=== PATIENT | female | born 1945 ===

== ENCOUNTER 2021-09-10 14:36 | Outpatient (REF) | payer OTHER, SELFPAY ==
--- NOTE | ~2021-09-10 | MM_ITS ---
EXAMINATION: MM SCREENING DIGITAL BREAST TOMOSYNTHESIS, BILATERAL CLINICAL INFORMATION: Right breast cancer status post lumpectomy 2009. Due for yearly. COMPARISON: Mammography: 12/07/2017, 10/18/2016, 10/10/2016, 03/17/2015 TECHNIQUE: Digital breast tomosynthesis is performed in both the craniocaudal and mediolateral oblique views along with computer-aided detection (CAD). Synthesized 2D images are generated from the tomosynthesis. Additional right MLO view is provided. FINDINGS: There are scattered areas of fibroglandular density (ACR BI-RADS breast composition Category b). Parenchymal pattern is similar to prior studies. There are stable post therapy changes again seen on the right with old scarring and reduced breast size. Neither breast shows interval mass or architectural abnormality or abnormal calcifications. No significant changes. MM/MM tomosynthesis screening BI IMPRESSION: No mammographic evidence of malignancy. ASSESSMENT: BI-RADS 2: Benign RECOMMENDATION: Routine annual mammography screening. This patient's information was entered into a reminder system with a target due date for their next mammogram.
== END 2021-09-10 14:37 | disposition home or self-care (01) ==
LOC: HO.MAMMO 14:36
PROVIDERS: Visit Provider Nurse Practitioner Family
DX: Z12.31 Encounter for screening mammogram for malignant neoplasm of breast (principal)
CPT/HCPCS: 77063; 77067

== ENCOUNTER 2022-10-03 08:56 | Outpatient (REF) | payer MEDICARE, SELFPAY ==
--- NOTE | ~2022-10-03 | MM_ITS ---
EXAMINATION: MM SCREENING DIGITAL BREAST TOMOSYNTHESIS, BILATERAL CLINICAL INFORMATION: Screening. Asymptomatic. Status post right lumpectomy. COMPARISON: Mammography: September 10, 2021 and studies dating back to March 17, 2015 TECHNIQUE: Digital breast tomosynthesis is performed in both the craniocaudal and mediolateral oblique views along with computer-aided detection (CAD). Synthesized 2D images are generated from the tomosynthesis. FINDINGS: There are scattered areas of fibroglandular density (ACR BI-RADS breast composition Category b). There are no significant masses, abnormal calcifications, or other abnormalities. Stable post surgical change about the right breast. MM/MM tomosynthesis screening BI IMPRESSION: No significant changes from prior exam. ASSESSMENT: BI-RADS 2: Benign RECOMMENDATION: Routine annual mammography screening. This patient's information was entered into a reminder system with a target due date for their next mammogram.
== END 2022-10-03 08:57 | disposition home or self-care (01) ==
LOC: HO.MAMMO 08:56
PROVIDERS: PCP Nurse Practitioner Family; Visit Provider Nurse Practitioner Family
DX: Z12.31 Encounter for screening mammogram for malignant neoplasm of breast (principal)
CPT/HCPCS: 77063; 77067

== ENCOUNTER 2023-05-03 09:59 | Outpatient (AMB) | payer MEDICARE, SELFPAY ==
[2023-05-03 10:24] VITALS: BP 120/74; PULSE 89; O2SAT 96; BMI 19.9
--- NOTE | 2023-05-03 10:24 | A.OFFPC_ITS ---
<Statement entered by Shira Centeno MD - 10/23/24 15:25> This note has been administratively?closed. Vital Signs 05/03/23 10:24 Height 5 ft Weight 102 lb 2 oz BMI 19.9 BP 120/74 Blood Pressure Location Rt brachial Position Sitting Pulse 89 Pulse Source Pulse Oximeter Pulse Oximetry (%) 96 Oxygen Delivery Method Room Air Intake Visit Reasons: HDF ~ Post hospital discharge FU Intake Note: pt is here for a HDF from [facility] Allergies Codeine Sulfate Allergy (Unknown, Uncoded 05/03/23 10:26) Unknown Darvon Allergy (Unknown, Uncoded 05/03/23 10:26) Unknown Tobacco use date assessed: 05/03/23 Fall risk assessment: 1 Fall in past year Last assessed Fall Risk: 05/03/23 Dental Screening Dental Screen Date: 05/03/23 Did you have a dental visit in the last 12 months?: No Did you have a dental problem in the last 6 months where you did not have access to dental care?: No Was dental information given to patient?: No HPI HPI Comments History of Present Illness Details The patient is a 77-year-old female in today following a hospital inpatient and rehab admission. The patient was originally admitted with a diagnosis of upper lobe pneumonia which was treated with ceftriaxone and azithromycin. While at the hospital they discovered hypokalemia which they attributed to a repleted well. While in the hospital they were able to rule out renal K wasting. The patient was discharged from the [facility] on 03/23/2023. It is reported by the patient that she has had a visiting nurse draw her blood at home to evaluate potassium levels. I do not have those potassium levels at this time. The patient presents today for follow-up on hypokalemia. She has no complaints at the time of visit, no dizziness, tachycardia, heart palpitations, shortness of breath, fever, or chest pain. She states that that since the hospital admission she has stopped drinking alcohol. The plan today will be focused exam with re-evaluation of electrolytes and blood count. PFSH Medical History Hx of bone density study Hypertension Osteopenia Psoriasis Surgical History H/O: hysterectomy S/P cholecystectomy Family History Father No problems noted. Mother Esophageal cancer Social History Housing: House Alcohol intake: current Alcohol intake frequency: a few times a week Patient Tobacco Use Status: Former Tobacco user Cigarettes Per Day: 4 Years Smoked: 17 years old e-Cigarette/Vaping Use: Never Used Second Hand Smoke Exposure: No Current occupational status: retired Cognitive needs: No Hearing needs: No Vision needs: No Questionnaire Thrive Questionnaire Date Thrive assessed: 11/07/22 IVAN-7 AMB Questionnaire IVAN-7 Date IVAN - 7 assessed: 11/07/22 Source: Developed by Drs. Tremaine Martinez, Marcie Harry, Ahmet Garcia and colleagues, with an educational cata from [employer]. Review of Systems Const Details: Constitutional : No Unintentional Weight loss, No Fever, No Chills, No Fatigue, Eyes: No Eye Pain, No Swelling, No Redness Cardiovascular : No Chest Pain, No SOB, No Dyspnea on Exertion, No Orthopnea, No Edema, No Palpitations Respiratory : No Cough, No Sputum, Gastrointestinal : No Nausea, No Vomiting, No Diarrhea, No Constipation, No abdominal Pain, No Hematochezia, No Melena Genitourinary : No Dysuria, No Urinary Frequency, No Hematuria, Musculoskeletal : No joint pain, No Myalgias, No Joint Swelling Skin : No Skin Lesions, No rash Neuro : No Weakness, No Numbness, No Dizziness, No Headache Psych : No Anxiety/Panic, No Depression Heme/Lymph: No Bruising, No Bleeding,No Lymphadenopathy Endocrine : No Polyuria, No Polydipsia All other systems reviewed and are negative All systems reviewed & are unremarkable except as noted in HPI and below Denies chills, Denies excessive sweating, Denies fatigue, Denies fever(s) and Denies headache(s) ENT Denies dizziness and Denies headache(s) Card Denies chest pain, Denies lightheadedness and Denies dyspnea Resp Denies chest congestion, Denies cough and Denies dyspnea Neuro Denies dizziness and Denies headache(s) Endo Denies excessive sweating, Denies fatigue and Denies polydipsia Physical exam (Primary Care) Vital Signs: Last Vital Signs Pulse 89 05/03/23 10:24 BP 120/74 05/03/23 10:24 Pulse Ox 96 05/03/23 10:24 Oxygen Delivery Method Room Air 05/03/23 10:24 Care Plan Goal for BP management: Patient's blood pressure is acceptable and stable BMI result Body Mass Index 19.9 Tobacco/Smoking Status: Tobacco use Status Tobacco use date assessed 05/03/23 05/03/23 10:33 Patient Tobacco Use Status Former Tobacco user 05/03/23 10:33 e-Cigarette/Vaping Use Never Used 05/03/23 10:33 Thrive Assessment: Date of Thrive Assessment Date Thrive assessed 11/07/22 05/03/23 10:33 Const Other: Appearance: Alert.? Oriented X3.? No acute distress.? Head: Normocephalic. Neck: Normal inspection.? Neck supple.? CVS: Normal heart rate and rhythm.? Pulses normal.? Respiratory: No respiratory distress.? Slight wheeze upper lobes bilaterally. ? Abdomen: Soft and nontender.? Skin: Skin warm and dry.? Normal skin color.? Neuro: Oriented X 3.?EOMI Eyes PERRLA General: no acute distress Orientation/consciousness: patient oriented x3 Limitations: ambulation with cane Resp Effort & Inspection: normal respiratory effort Auscultation: wheezes expiratory wheezes and upper bilaterally Cardio Jugular venous distension: no JVD Rate: regular rate Rhythm: regular rhythm Heart sounds: S1 normal heart sound present and S2 normal heart sound present Neuro General: patient oriented x3 Results Reviewed Results Reviewed: Patient has agreed to a lab draw today. Will call with results. Assessment and Plan Assessment & Plan (1) Hypokalemia: Code(s): E87.6 - Hypokalemia Plan: This is a follow-up visit from hospital inpatient admission where patient was found to have hypokalemia. We will get a lab draw today to assess electrolyte status. The patient is taking an [id number] potassium supplement with unknown amount of potassium. Patient has been instructed to stop that potassium, and to take 10 mEq of potassium chloride. Patient will have an additional lab draw for electrolytes in 3 days. She has been educated on the side effects of the medication. She has been educated on the importance of [place] ping her serum potassium level in range, as it can lead to serious side effects if not. She has been educated on signs of worsening symptoms and when to return for follow-up in when to present to the emergency room. Patient is agreeable to this plan. (2) Wheeze: Comment: The patient was found to have a slight inspiratory and expiratory wheeze on the bilateral upper lobes. Though patient denies having any shortness of breath or chest pain, due to her recent stay in the hospital for pneumonia will prescribe albuterol rescue inhaler because she does not have 1 at home. Patient has been educated on side effects of the medication. Patient has been educated on signs of worsening symptoms and when to return or present to the emergency room. Patient is agreeable to this plan. Code(s): R06.2 - Wheezing Orders: Orders Comprehensive Met. Panel 05/03/23 E87.6 - Hypokalemia Complete Blood Count Auto Diff 05/03/23 F17.200 - Nicotine dependence, unspecified, uncomplicated Electrolytes 05/03/23 E87.6 - Hypokalemia Medications: New albuterol sulfate 90 mcg/actuation 2 inhalations inhalation Q6H PRN 1 ea 0RF shortness of breath or wheezing potassium chloride 10 mEq PO DAILY 30 ea 0RF Coding Level of Care Code Est Pt Level 3 (64996) Diagnoses Hypokalemia E87.6 Wheeze R06.2 Time Spent (min) 30
== END 2023-05-03 11:07 | disposition home or self-care (01) ==
PROVIDERS: PCP Nurse Practitioner Family; Visit Provider Nurse Practitioner Primary Care
DX: E87.6 Hypokalemia (principal); R06.2 Wheezing
CPT/HCPCS: 99499

== ENCOUNTER 2023-05-03 11:13 | Outpatient (REF) | payer MEDICARE, SELFPAY ==
[2023-05-03 13:25] LABS: MANUAL DIFF FLAG NO
[2023-05-03 13:31] LABS: Basophils Absolute Auto 0.1 X10*3/uL (0.0-0.2); Basophils Percent Auto 0.7 % (0-2); Eosinophils Absolute Auto 0.1 X10*3/uL (0.0-0.4); Eosinophils Percent Auto 1.5 % (0-4); Hematocrit 43.1 % (37.0-47.0); Hemoglobin 14.4 g/dl (12.0-16.0); Imm Gran Abs Auto 0.03 X10*3/uL (0.00-0.03); Imm Gran Pct Auto 0.4 % (0.0-0.4); Lymphocytes Absolute Auto 1.6 X10*3/uL (1.2-4.9); Lymphocytes Percent Auto 20.5 % (20-40); Mean Corpuscular HGB Conc 33.4 g/dl (31.0-35.0); Mean Corpuscular Hemoglobin 30.2 pg (27.0-33.0); Mean Corpuscular Volume 90.4 fL (80.0-98.0); Mean Platelet Volume 10.8 fL (9.4-12.3); Monocytes Absolute Auto 0.5 X10*3/uL (0.1-1.2); Monocytes Percent Auto 6.1 % (2-11); Neutrophils Absolute Auto 5.4 x10*3/uL (2.0-8.3); Neutrophils Percent Auto 70.8 % (45-73); Platelet Count 340 X10*3/uL (160-400); Red Blood Count 4.77 X10*6/uL (4.20-5.50); Red Cell Distribution Width 14.6 % (11.0-16.0); White Blood Count 7.6 X10*3/uL (4.8-10.8)
[2023-05-03 14:24] LABS: Alanine Aminotransferase 11 U/L (0-31); Albumin Level 4.4 g/dL (3.5-5.0); Alkaline Phosphatase 115 U/L (39-117); Anion Gap 13 (12-20); Aspartate Amino Transferase 17 U/L (5-31); Bilirubin Total 0.3 mg/dL (0.0-1.0); Blood Urea Nitrogen 6 mg/dL (9-16); Calcium 10.3 mg/dL (8.4-10.2); Carbon Dioxide 26 mmol/L (22-29); Chloride 106 mmol/L (96-108); Estimated Glomerular Filt Rate > 60; Glucose Random 96 mg/dL (60-115); Potassium 3.2 mmol/L (3.3-5.1); Sodium 142 mmol/L (135-145); Total Protein 7.5 g/dL (6.5-8.0)
== END 2023-05-03 11:14 | disposition home or self-care (01) ==
LOC: HO.HMGCLDS 11:13
PROVIDERS: Absent Provider Nurse Practitioner Family; PCP Nurse Practitioner Family; Visit Provider Nurse Practitioner Primary Care
DX: E87.6 Hypokalemia (principal); F17.200 Nicotine dependence, unspecified, uncomplicated
CPT/HCPCS: 36415; 80053; 85025

== ENCOUNTER 2023-05-22 08:50 | Outpatient (REF) | payer MEDICARE, SELFPAY ==
[2023-05-22 11:53] LABS: Anion Gap 13 (12-20); Carbon Dioxide 24 mmol/L (22-29); Chloride 107 mmol/L (96-108); Potassium 3.3 mmol/L (3.3-5.1); Sodium 141 mmol/L (135-145)
== END 2023-05-22 08:51 | disposition home or self-care (01) ==
LOC: HO.HMGCLDS 08:50
PROVIDERS: Absent Provider Nurse Practitioner Primary Care; PCP Nurse Practitioner Family; Visit Provider Nurse Practitioner Family
DX: E87.6 Hypokalemia (principal)
CPT/HCPCS: 36415; 80051

== ENCOUNTER 2024-02-12 12:34 | Outpatient (AMB) | payer MEDICARE, SELFPAY ==
--- NOTE | 2024-02-12 12:40 | A.OFFPC_ITS ---
Vital Signs 02/12/24 12:46 Height 5 ft Weight 110 lb BMI 21.5 BP 120/72 Blood Pressure Location Rt brachial Position Sitting Pulse 90 Pulse Source Pulse Oximeter Pulse Oximetry (%) 96 Oxygen Delivery Method Room Air Intake Visit Reasons: Annual PE Intake Note: pt is here for annual exam [id number] Joy Operator Required: No Accompanied by: Self / Same As Patient Allergies Codeine Sulfate Allergy (Unknown, Uncoded 02/12/24 12:47) Unknown Darvon Allergy (Unknown, Uncoded 02/12/24 12:47) Unknown Medication List - Last Reconciled 02/12/24 by JOSE Horne amlodipine 10 mg PO DAILY 90 days apremilast (Otezla Starter) PO PER PKG DIR ascorbic acid (vitamin C) mg PO aspirin (Adult Aspirin Regimen) 81 mg PO DAILY cholecalciferol (vitamin D3) 25 mcg PO DAILY folic acid 1 mg PO DAILY ibuprofen-diphenhydramine cit 200-38 mg (Advil PM) 2 caps PO BEDTIME lactobacillus combination no.9 (Adult 50 Plus Probiotic) 4,000 mmu cells PO DAILY potassium chloride ER 10 mEq PO DAILY simvastatin 10 mg PO BEDTIME Tobacco use date assessed: 02/12/24 Fall risk assessment: No Falls in past year Last assessed Fall Risk: 02/12/24 Dental Screening Dental Screen Date: 02/12/24 Did you have a dental visit in the last 12 months?: No Did you have a dental problem in the last 6 months where you did not have access to dental care?: No Was dental information given to patient?: No HPI Annual PE HPI Details Pt is here for a PE. Will order labs. Refuses colon screens. Due for m ammo, will order. Due for bone density, will order. Pt is a former smoker, refuses low-dose CTs. [facility] Medical History Hx of bone density study Osteopenia Psoriasis Hypertension Surgical History S/P cholecystectomy H/O: hysterectomy Family History Father No problems noted. Mother Esophageal cancer Social History Housing: House Alcohol intake: current Alcohol intake frequency: a few times a week Patient Tobacco Use Status: Former Tobacco user Cigarettes Per Day: 4 Years Smoked: 17 years old e-Cigarette/Vaping Use: Never Used Second Hand Smoke Exposure: No Current occupational status: retired Cognitive needs: No Hearing needs: No Vision needs: No Questionnaire PHQ-9 Over the last 2 weeks, how often have you been bothered by any of the following problems? 1. Little interest or pleasure in doing things: not at all 2. Feeling down, depressed, or hopeless: not at all 3. Trouble falling or staying asleep, or sleeping too much: not at all 4. Feeling tired or having little energy: not at all 5. Poor appetite or overeating: not at all 6. Feeling bad about yourself - or that you are a failure or have let yourself or your family down: not at all 7. Trouble concentrating on things, such as reading the newspaper or watching television: not at all 8. Moving or speaking so slowly that other people could have noticed. Or the opposite - being so fidgety or restless that you have been moving around a lot more than usual: not at all 9. Thoughts that you would be better off or of hurting yourself in some way: not at all Total score: 0 Depression Screening Interpretation: Negative Depression Screening Done: Yes 11460 - PHQ-9 Billing: Yes Source: Developed by Drs. Tremaine Martinez, Marcie Harry, Ahmet Garcia and colleagues, with an educational cata from [employer]. Thrive Questionnaire Date Thrive assessed: 02/12/24 I am a: Patient What is your living situation today?: I have a steady place to live Within the past 12 months, did the food you bought not last and you didn't have the money to get more?: Never true Within the past 12 months, did you worry whether your food would run out before you got money to buy more?: Never true Do you have trouble paying for medicines?: No Do you have trouble getting transportation to medical appointments?: No Do you have trouble paying your heating and electricity bill?: No Do you have trouble taking care of your child, family member or friend?: No Do you have trouble with day-to-day activities such as bathing, preparing meals, shopping, managing finances, etc.?: No Are you currently unemployed and looking for a job?: No Are you interested in more education?: No Please select the resources that you would like help with: None Currently or been in a relationship where the following occur: No concerns reported and I choose not to answer THRIVE Score: 0 AUDIT C Alcohol Use Questionnaire (AUDIT-C) 1. How often do you have a drink containing alcohol?: 2-4 times a month 2. How many drinks containing alcohol do you have on a typical day when you are drinking?: 3 or 4 3. How often do you have six or more drinks on one occasion?: Never Total Score: 3 Score Reviewed/Action Taken: Yes IVAN-7 AMB Questionnaire IVAN-7 Date IVAN - 7 assessed: 02/12/24 Feeling nervous, anxious, or on edge: 0 = Not at all Not being able to stop or control worryin = Not at all Worrying too much about different things: 0 = Not at all Trouble relaxin = Not at all Being so restless that it is hard to sit still: 0 = Not at all Becoming easily annoyed or irritable: 0 = Not at all Feeling afraid as if something awful might happen: 0 = Not at all Total IVAN-7 score (0-4 normal; 5-9 mild; 10-14 moderate; 15-21 severe): 0 Source: Developed by Drs. Tremaine Martinez, Marcie Harry, Ahmet Garcia and colleagues, with an educational cata from [employer]. IVAN-7 Assessment Billing IVAN-7 Assessment Tool: IVAN-7 Assessment 42302 Review of Systems Const Denies chills and Denies fever(s) Eyes Denies blurry vision ENT Denies vertigo, Denies dizziness and Denies sore throat Card Denies chest pain at rest, Denies chest pain with activity, Denies diaphoresis, Denies dyspnea and Denies dyspnea on exertion Resp Denies cough, Denies dyspnea, Denies dyspnea on exertion and Denies wheezing GI Denies abdominal pain, Denies melena, Denies hematochezia, Denies constipation, Denies diarrhea and Denies loose stools Denies hematuria Musc Denies numbness and Denies tingling Skin/Breast Denies lesions Neuro Denies vertigo, Denies dizziness, Denies numbness and Denies tingling Psych Denies anxiety, Denies depression, Denies homicidal ideation, Denies suicidal ideation and Denies other (substance abuse) Aller/Immun Denies wheezing Physical exam (Primary Care) Vital Signs: Last Vital Signs Pulse 90 02/12/24 12:46 BP 120/72 02/12/24 12:46 Pulse Ox 96 02/12/24 12:46 Oxygen Delivery Method Room Air 02/12/24 12:46 BMI result Body Mass Index 21.5 Tobacco/Smoking Status: Tobacco use Status Tobacco use date assessed 02/12/24 02/12/24 12:51 Patient Tobacco Use Status Former Tobacco user 02/12/24 12:42 e-Cigarette/Vaping Use Never Used 02/12/24 12:42 PHQ-9: PHQ-9 Score PHQ-9: Total score 0 02/12/24 13:25 Depression Screening Interpretation: Negative Thrive Assessment: Date of Thrive Assessment Date Thrive assessed 02/12/24 02/12/24 12:51 Currently or been in a relationship where the following occur: No concerns reported and I choose not to answer Const General: cooperative Nutritional Appearance: well nourished Orientation/consciousness: patient oriented x3 HENMT Head: Yes normal to inspection, Yes normocephalic and Yes atraumatic Ears: TM's normal bilaterally Eyes General: appearance normal, both eyes and all related structures Alignment and Position: alignment normal and position normal Neck Neck: Yes normal visual inspection, Yes no lymphadenopathy and Yes supple Resp Other: scattered wheezes Cardio Rate: regular rate Rhythm: regular rhythm Heart sounds: S1 normal heart sound present, S2 normal heart sound present and no murmurs GI Palpation (GI): Soft to palpation and nontender Auscultation: normal bowel sounds Skin Rashes: no rashes Neuro General: patient oriented x3, moves all extremities, no focal motor deficits and deep tendon reflexes 2+ bilaterally Romberg Test: Negative Psych Appearance: grossly normal Mental Status: mental status grossly normal Speech and movement: Normal speech and movement present Affect: normal affect Attitude: cooperative Thought process: Normal thought process present Thought content: Normal thought content present Insight: Good insight present (Psych) Judgement: Good judgement present (Psych) Assessment and Plan Assessment & Plan (1) Physical exam: Code(s): Z00.00 - Encounter for general adult medical examination without abnormal findings Plan: Labs ordered (2) Osteopenia: Code(s): M85.80 - Other specified disorders of bone density and structure, unspecified site Plan: Bone density ordered Plan The patient agreed to the use of a medical social worker for this encounter. Scribed for BREANA Catalan-STEPHANIE by Josy Mendez medical social worker, on 02/12/2024 at 13:25 EST. Orders: Orders Comprehensive Bernard. Panel Fast Today Z00.00 - Encounter for general adult medical examination without abnormal findings TSH reflex Free T4 Today Z00.00 - Encounter for general adult medical examination without abnormal findings Complete Blood Count Auto Diff Today Z00.00 - Encounter for general adult medical examination without abnormal findings UA CC w/rflx Micro + Cult Today Z00.00 - Encounter for general adult medical examination without abnormal findings Lipid Panel Today Z00.00 - Encounter for general adult medical examination without abnormal findings MM screening mammo BI Today Z12.31 - Encounter for screening mammogram for malignant neoplasm of breast Vitamin D 25-OH Total Today M85.80 - Other specified disorders of bone density and structure, unspecified site XR DEXA axial skeleton Today M85.80 - Other specified disorders of bone density and structure, unspecified site Coding Level of Care Code Est Pt Prev Care >65y(43255) Diagnoses Physical exam Z00.00 Osteopenia M85.80 Additional Codes IVAN-7 Assessment Billing - IVAN-7 Assessment Tool: IVAN-7 Assessment 74085 ([id number])
[2024-02-12 12:46] VITALS: BP 120/72; PULSE 90; O2SAT 96; BMI 21.5
== END 2024-02-12 15:09 | disposition home or self-care (01) ==
PROVIDERS: PCP Nurse Practitioner Family; Visit Provider Nurse Practitioner Family
DX: Z00.00 Encounter for general adult medical examination without abnormal findings (principal); M85.80 Other specified disorders of bone density and structure, unspecified site
CPT/HCPCS: 99397

== ENCOUNTER 2024-03-07 12:34 | Outpatient (REF) | payer MEDICARE, SELFPAY ==
--- NOTE | ~2024-03-07 | MM_ITS ---
EXAMINATION: BONE DENSITOMETRY CLINICAL INDICATION: Other specified disorders of bone density and structure. COMPARISON: Previous BD dated 03/17/2015 and baseline BD dated 05/23/2006. TECHNIQUE: Using a [employer] DXA System (software version: 13.1) manufactured by [employer], dual-energy x-ray absorptiometry was performed of the lumbar spine and left hip. The images are of good technical quality. Summary results are attached. FINDINGS: LEFT FEMUR, NECK: Current: BMD 0.572 g/cm2, Z-score -1.1, T-score -3.4, osteoporosis. Prior: BMD 0.738 g/cm2. Baseline: BMD 0.890 g/cm2. LEFT FEMUR, TOTAL: Current: BMD 0.522 g/cm2, Z-score -1.7, T-score -3.9, osteoporosis, 31.0% decrease from previous, 43.2% decrease from baseline (<5% change is not significant). Prior: BMD 0.757 g/cm2. Baseline: BMD 0.919 g/cm2. AP SPINE L1-L4: Current: BMD 0.756 g/cm2, Z-score -1.3, T-score -3.5, osteoporosis, 15.1% decrease from previous, 22.1% decrease from baseline (<5% change is not significant). Prior: BMD 0.890 g/cm2. Baseline: BMD 0.970 g/cm2. IDENTIFIED RISK FACTORS: Early menopause, secondary osteoporosis, hysterectomy, left oophorectomy. HISTORY OF FRACTURE: None listed. MEDICATIONS: Calcium supplements or multivitamin, vitamin D. MM/XR DEXA axial skeleton IMPRESSION: 1. DIAGNOSIS: Osteoporosis based on the lowest T-score value of -3.9 in the total femur applying World Health Organization criteria. 2. 10-YEAR FRACTURE RISK PREDICTION, FRAX: According to the guidelines, FRAX calculation should only be performed on patients in the osteopenia bone density category. Therefore, FRAX was not performed on this patient. 3. Treatment Recommendations: NOF guidelines recommend consideration for treatment in postmenopausal women and men age 50 and older presenting with the following: -A hip or vertebral (clinical or morphometric) fracture. -T-score less than or equal to -2.5 at the femoral neck or spine after appropriate evaluation to exclude secondary causes. -Low bone mass at the hip or spine and a 10-year fracture probability by FRAX of greater than or equal to 3% for hip fracture or greater than or equal to 20% for major osteoporotic fracture based on the [place] adapted WHO algorithm. 4. Other Recommendations: All treatment decisions require clinical judgment and consideration of individual patient factors, including patient preferences, comorbidities, previous drug use, risk factors not captured in the FRAX model (e.g. frailty, falls, vitamin D deficiency, increased bone turnover, interval significant decline in bone density) and possible under or overestimation of fracture risk by FRAX. Additional medical evaluation for secondary cause of low bone mineral density may be appropriate. FUTURE SCAN RECOMMENDATION: People with diagnosed cases of osteoporosis or at high risk for fracture should have regular bone mineral density tests. For patients eligible for Medicare, routine testing is allowed once every 2 years. The testing frequency can be increased to one year for patients who have rapidly progressing disease, those who are receiving or discontinuing medical therapy to restore bone mass, or have additional risk factors. Electronically signed by: Haider Gary MD 03/26/2024 08:37 AM EDT MARTHA
--- NOTE | ~2024-03-07 | MM_ITS ---
EXAMINATION: MM SCREENING DIGITAL BREAST TOMOSYNTHESIS, BILATERAL CLINICAL INFORMATION: Screening. Asymptomatic. COMPARISON: Mammography: Comparison is made with available priors TECHNIQUE: Digital breast mammography with tomosynthesis is performed in both the craniocaudal and mediolateral oblique views along with computer-aided detection (CAD). FINDINGS: There are scattered areas of fibroglandular density (ACR BI-RADS breast composition Category b). Status post right lumpectomy changes are stable. There are no significant masses, abnormal calcifications, or other abnormalities. MM/MM tomosynthesis screening BI IMPRESSION: No mammographic evidence of malignancy. ASSESSMENT: BI-RADS BI-RADS 2 - Benign Findings RECOMMENDATION: Routine annual mammography screening. 1 year F/U This examination should not preclude the clinical evaluation of a suspicious palpable abnormality. This patient's information was entered into a reminder system with a target due date for their next mammogram. Electronically signed by: Meagan Manning DO 03/20/2024 08:22 AM EDT
== END 2024-03-07 12:35 | disposition home or self-care (01) ==
LOC: HO.MAMMO 12:34
PROVIDERS: PCP Nurse Practitioner Family; Visit Provider Nurse Practitioner Family
DX: Z12.31 Encounter for screening mammogram for malignant neoplasm of breast (principal); Z13.820 Encounter for screening for osteoporosis; M85.80 Other specified disorders of bone density and structure, unspecified site; Z78.0 Asymptomatic menopausal state
CPT/HCPCS: 77063; 77067; 77080

== ENCOUNTER → 2024-03-07 13:45 | Outpatient (BNV) | payer MEDICARE, SELFPAY | PROVIDERS: PCP Nurse Practitioner Family; Visit Provider Internal Medicine | DX: Z12.31 Encounter for screening mammogram for malignant neoplasm of breast (principal) | CPT/HCPCS: 77063; 77067 ==

== ENCOUNTER 2024-05-14 12:42 | Outpatient (AMB) | payer MEDICARE, SELFPAY ==
--- NOTE | 2024-05-14 12:59 | A.OFFVIS_ITS ---
Vital Signs 05/14/24 13:00 Height 5 ft Weight 117 lb 8.102 oz BMI 22.9 BP 104/68 Blood Pressure Location Lt brachial Pulse 48 L Pulse Source Pulse Oximeter Intake Visit Reasons: Osteoporosis-confirmed Intake Note: New patient present today for Osteoporosis office visit. Manager Utilization Required: No Accompanied by: Self / Same As Patient Allergies Codeine Sulfate Allergy (Unknown, Uncoded 05/14/24 13:05) Unknown Darvon Allergy (Unknown, Uncoded 05/14/24 13:05) Unknown Medication List - Last Reconciled 05/14/24 by Mahnaz Adams MD amlodipine 10 mg PO DAILY 90 days apremilast (Otezla Starter) PO PER PKG DIR ascorbic acid (vitamin C) mg PO aspirin (Adult Aspirin Regimen) 81 mg PO DAILY cholecalciferol (vitamin D3) 25 mcg PO DAILY folic acid 1 mg PO DAILY ibuprofen-diphenhydramine cit 200-38 mg (Advil PM) 2 caps PO BEDTIME lactobacillus combination no.9 (Adult 50 Plus Probiotic) 4,000 mmu cells PO DAILY potassium chloride ER 10 mEq PO DAILY simvastatin 10 mg PO BEDTIME HPI Comments Details: 78-year-old female here today for initial evaluation of osteoporosis. Most recent bone density scan done in February 2024 showed T-score of-3.5 with the lumbar spine with decrease of 15% in bone density at the spine by my own calculation, and T-score of-3.4 at the left femoral neck and-3.9 at the total femur with a decrease of 31% in bone density at the hip per my calculation. Last bone density scan was in 2014. 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 She is really unsure about most of this and at first denied most of this history and only when I prompted her with chart review she started acknowledging it, she shrugged to most of my questions unless prompted . Secondary risk factors: Steroid use: none Hyperthyroidism: Neg Seizure medication use: None Chemo or Radiation use: yes had radiation therapy for right sided breast cancer s/p lumpectomy 7 years ago and radiation therapy Heparin Use: Neg History of eating disorder: Negative intermediate manager immobilization: Negative History of kidney stones or disease: negative PI Use: Negative Chronic inflammatory lung disease: Negative Chronic inflammatory bowel disease: Negative Daily calcium intake: no supplements, milk once in a while, no cheese, no yogurt, green leafy vegetables sometimes Vitamin D intake: 1000 units daily Exercise:not much just in the house Smoking history:once a week she will smoke 2 cigarettes , used to smoke a lot more before, cut down 2 years ago Dental: has false teeth HTN On amlodipine 10 mg daily BP well ocntrolled Has been on potassium 10 meq daily once since 2022 after potassium was noted to be at 3.2 No family history of ND or stroke No personal history of ND/stroke Physical exam General: sitting comfortably in no acute distress HEENT: normocephalic/atraumatic Neck: supple Cardiac: normal heart sounds Pulm: normal breath sounds B/L, no added breath sounds Abd: not distended, no tenderness Extremities: no edema, no signs of myxedema Laboratory Tests 10/04/18 05/03/23 14:29 11:38 Creatinine 0.69 0.62 Est GFR (Non-Af Amer) > 60 Estimated GFR > 60 Calcium 10.1 10.3 H Alkaline Phosphatase 115 Albumin 4.5 4.4 BONE DENSITOMETRY 03/12 CLINICAL INDICATION: Other specified disorders of bone density and structure. COMPARISON: Previous BD dated 03/17/2015 and baseline BD dated 05/23/2006. TECHNIQUE: Using a Collections DXA System (software version: 13.1) manufactured by [employer], dual-energy x-ray absorptiometry was performed of the lumbar spine and left hip. The images are of good technical quality. Summary results are attached. FINDINGS: LEFT FEMUR, NECK: Current: BMD 0.572 g/cm2, Z-score -1.1, T-score -3.4, osteoporosis. Prior: BMD 0.738 g/cm2. Baseline: BMD 0.890 g/cm2. LEFT FEMUR, TOTAL: Current: BMD 0.522 g/cm2, Z-score -1.7, T-score -3.9, osteoporosis, 31.0% decrease from previous, 43.2% decrease from baseline (<5% change is not significant). Prior: BMD 0.757 g/cm2. Baseline: BMD 0.919 g/cm2. AP SPINE L1-L4: Current: BMD 0.756 g/cm2, Z-score -1.3, T-score -3.5, osteoporosis, 15.1% decrease from previous, 22.1% decrease from baseline (<5% change is not significant). Prior: BMD 0.890 g/cm2. Baseline: BMD 0.970 g/cm2. IDENTIFIED RISK FACTORS: Early menopause, secondary osteoporosis, hysterectomy, left oophorectomy. HISTORY OF FRACTURE: None listed. MEDICATIONS: Calcium supplements or multivitamin, vitamin D. MM/XR DEXA axial skeleton IMPRESSION: 1. DIAGNOSIS: Osteoporosis based on the lowest T-score value of -3.9 in the total femur applying World Health Organization criteria. 2. 10-YEAR FRACTURE RISK PREDICTION, FRAX: According to the guidelines, FRAX calculation should only be performed on patients in the osteopenia bone density category. Therefore, FRAX was not performed on this patient. [facility] Medical History Hx of bone density study Osteopenia Psoriasis Hypertension Surgical History S/P cholecystectomy H/O: hysterectomy Family History Father No problems noted. Mother Esophageal cancer Social History Housing: House Alcohol intake: current Alcohol intake frequency: a few times a week Patient Tobacco Use Status: Former Tobacco user Cigarettes Per Day: 4 Years Smoked: 17 years old e-Cigarette/Vaping Use: Never Used Second Hand Smoke Exposure: No Current occupational status: retired Cognitive needs: No Hearing needs: No Vision needs: No Assessment & Plan Assessment & Plan (1) Osteoporosis: Code(s): M81.0 - Age-related osteoporosis without current pathological fracture Category: Medical Qualifiers: Osteoporosis type: age-related Presence of current pathological fracture: without current pathological fracture Qualified Code(s): M81.0 - Age- related osteoporosis without current pathological fracture Plan: 78-year-old female coming in today for initial evaluation of osteoporosis. Her risks are early menopause, age related, petite physique, poor nutritional intake of calcium and smoking. Most recent bone density scan done in February 2024 showed T-score of-3.5 with the lumbar spine with decrease of 15% in bone density at the spine by my own calculation, and T-score of-3.4 at the left femoral neck and-3.9 at the total femur with a decrease of 31% in bone density at the hip per my calculation. Last bone density scan was in 2014. I do not have the report of this. I discussed conservative measures including adequate calcium intake, adequate vitamin D levels as well as the role of weightbearing exercises in general being good for bone health. In addition to conservative management with calcium and vitamin D; I do believe she would benefit from antiresorptive therapy in terms of reducing future fracture risk. Given more severe osteoporosis, she would benefit from a more potent agents such as Prolia. She would not be a good candidate for anabolic such as Tymlos or Forteo or Evenity given that she has a history of radiation therapy for breast cancer. Unclear whether she was on aromatase inhibitors. I counseled regarding the mechanism of action, route of administration, common side effects of Prolia as well as black box warnings particularly osteonecrosis of the jaw and atypical femur fracture. Prior to initiating therapy I would like her to complete work-up to get baseline bone turnover markers as well as rule out secondary causes of osteoporosis. Plan: -continue vitamin-D 1000 units daily -start 2-3 servings of calcium rich foods daily, as well as start taking calcium 600 mg in supplement -do secondary workup for osteoporosis with 24 hour urine, creatinine as well as blood work along with resorption markers -follow up in 6 weeks to discuss results (2) Hypertension: Code(s): I10 - Essential (primary) hypertension Category: Medical Qualifiers: Hypertension type: primary hypertension Qualified Code(s): I10 - Essential (primary) hypertension Plan: Patient also noted to be on potassium supplements. Noted to have an episode of hypokalemia in 2022 with potassium level of 3.2. Blood pressure is well- controlled and she is only on amlodipine 10 mg daily. Unlikely that she has primary hyperaldosteronism however given she is on potassium supplements I will screen her with a plasma renin and aldosterone level. Plan: -ordered plasma aldosterone and plasma renin activity and BMP Plan I spent 45 minutes in reviewing the record, seeing the patient and documenting in the medical record. Orders: Orders Albumin Level Today M81.0 - Age-related osteoporosis without current pathological fracture Collagen Type I C-Telopeptide Today M81.0 - Age-related osteoporosis without current pathological fracture Phosphorus Today M81.0 - Age-related osteoporosis without current pathological fracture Parathyroid Hormone Intact Today M81.0 - Age-related osteoporosis without current pathological fracture Immunofixation Pnl, Serum Today M81.0 - Age-related osteoporosis without current pathological fracture Magnesium Today M81.0 - Age-related osteoporosis without current pathological fracture TSH reflex Free T4 Today M81.0 - Age-related osteoporosis without current pathological fracture Aldosterone Today I10 - Essential (primary) hypertension Calcium Today M81.0 - Age-related osteoporosis without current pathological fracture Alkaline Phosphatase Bone Today M81.0 - Age-related osteoporosis without current pathological fracture Protein Electrophoresis, Serum Today M81.0 - Age-related osteoporosis without current pathological fracture Basic Metabolic Panel Today M81.0 - Age-related osteoporosis without current pathological fracture Vitamin D 25-OH Total Today M81.0 - Age-related osteoporosis without current pathological fracture Calcium, 24 Hr Ur Today M81.0 - Age-related osteoporosis without current pathological fracture Creatinine, 24 Hr Group Today M81.0 - Age-related osteoporosis without current pathological fracture Renin Today I10 - Essential (primary) hypertension Patient Instructions: Continue taking vitamin D 1000 units daily Start eating 2-3 servings of calcium rich foods daily such as milk , yogurt, cheese Plus start taking a calcium carbonate 600 mg once daily Stop smoking Do 24 hr urine test and same day as you hand in the urine , do the blood work fasting 24 hr urine collection instructions You have been asked to collect your urine for 24 hours to assess for calcium excretion. You must choose a 24 hour period of time when you will be home. The morning of the first day, DISCARD the FIRST morning void and then note the time. You will collect every single void from then on for 24 hours. For example, if you wake up at 6am and urinate, flush down that void. You will then collect every drop of urine all day and all night through 6am the following day. You will urinate one last time at 6am for the collection. The jug of urine must be kept in the refrigerator until you bring it to the lab.You have been asked to collect your urine for 24 hours to assess for calcium excretion. You must choose a 24 hour period of time when you will be home. The morning of the first day, DISCARD the FIRST morning void and then note the time. You will collect every single void from then on for 24 hours. For example, if you wake up at 6am and urinate, flush down that void. You will then collect every drop of urine all day and all night through 6am the following day. You will urinate one last time at 6am for the collection. The jug of urine must be kept in the refrigerator until you bring it to the lab. Follow up with me in 6 weeks to discuss results Coding Level of Care Code New Pt Level 4 (64668) Diagnoses Age-related osteoporosis without current pathological fracture M81.0 Osteoporosis type: age-related Presence of current pathological fracture: without current pathological fracture Primary hypertension I10 Hypertension type: primary hypertension Time Spent (min) 45
[2024-05-14 13:00] VITALS: BP 104/68; PULSE 48; BMI 22.9
== END 2024-05-14 13:49 | disposition home or self-care (01) ==
PROVIDERS: PCP Nurse Practitioner Family; Visit Provider Student in an Organized Health Care Education/Training Program
DX: M81.0 Age-related osteoporosis without current pathological fracture (principal); I10 Essential (primary) hypertension
CPT/HCPCS: 99204

== ENCOUNTER 2024-05-14 13:57 | Outpatient (REF) | payer MEDICARE, SELFPAY ==
[2024-05-14 15:53] LABS: Parathyroid Hormone Intact 44.7 pg/mL (8.7-77.1)
[2024-05-14 16:02] LABS: Albumin Level 4.7 g/dL (3.5-5.0); Anion Gap 16 (12-20); Blood Urea Nitrogen 12 mg/dL (9-16); Calcium 10.2 mg/dL (8.4-10.2); Carbon Dioxide 21 mmol/L (22-29); Chloride 104 mmol/L (96-108); Estimated Glomerular Filt Rate > 60; Glucose Random 134 mg/dL (60-115); Magnesium 2.1 mg/dL (1.6-2.6); Phosphorus 3.3 mg/dL (2.7-4.5); Potassium 3.3 mmol/L (3.3-5.1); Sodium 138 mmol/L (135-145)
[2024-05-14 16:10] LABS: TSH reflex Free T4 2.04 uIU/mL (0.32-4.0); Vitamin D 25-OH Total 64.7 ng/mL (>30)
[2024-05-17 11:58] LABS: Prot Elec - Albumin 4.8 g/dL (3.8-4.8); Prot Elec - Alpha1 0.3 g/dL (0.2-0.3); Prot Elec - Alpha2 0.8 g/dL (0.5-0.9); Prot Elec - Beta 1 0.4 g/dL (0.4-0.6); Prot Elec - Beta 2 0.4 g/dL (0.2-0.5); Prot Elec - Gamma 0.9 g/dL (0.8-1.7); Prot Elec - Total Protein 7.6 g/dL (6.1-8.1)
[2024-05-18 15:49] LABS: Collagen Type I C-Telopeptide 626 pg/mL (see note)
[2024-05-20 21:44] LABS: IgA 180 mg/dL (70-320); IgG 1016 mg/dL (600-1540); IgM 96 mg/dL (50-300)
[2024-05-21 15:53] LABS: Alkaline Phosphatase Bone 22.7 mcg/L (5.6-29.0)
== END 2024-05-14 13:58 | disposition home or self-care (01) ==
LOC: HO.LAB 13:57
PROVIDERS: PCP Nurse Practitioner Family; Visit Provider Student in an Organized Health Care Education/Training Program
DX: I10 Essential (primary) hypertension (principal); M81.0 Age-related osteoporosis without current pathological fracture
CPT/HCPCS: 36415; 80048; 82040; 82088; 82306; 82523; 82784; 83735; 83970; 84075; 84100; 84165; 84244; 84443; 86334; 99202

== ENCOUNTER 2024-11-12 07:58 | Outpatient (REF) | payer MEDICARE, SELFPAY ==
[2024-11-12 10:14] LABS: Appearance Urine Clear; Color Urine Yellow; Glucose Urine UA Negative (Negative); Leukocyte Esterase Urine Negative (Negative); Nitrite Urine Negative (Negative); Specific Gravity - Urine 1.015 (1.005-1.025); Urine Blood Negative (Negative); Urine Ketones Negative (Negative); Urine Protein Negative (Neg-Trace)
[2024-11-12 10:15] LABS: Basophils Absolute Auto 0.1 X10*3/uL (0.0-0.2); Eosinophils Absolute Auto 0.3 X10*3/uL (0.0-0.4); Eosinophils Percent Auto 3.5 % (0-4); Hematocrit 43.5 % (37.0-47.0); Hemoglobin 14.2 g/dl (12.0-16.0); Imm Gran Abs Auto 0.05 X10*3/uL (0.00-0.03); Imm Gran Pct Auto 0.7 % (0.0-0.4); Lymphocytes Absolute Auto 2.5 X10*3/uL (1.2-4.9); Lymphocytes Percent Auto 35.3 % (20-40); MANUAL DIFF FLAG SCAN; Mean Corpuscular HGB Conc 32.6 g/dl (31.0-35.0); Mean Corpuscular Hemoglobin 30.1 pg (27.0-33.0); Mean Corpuscular Volume 92.4 fL (80.0-98.0); Mean Platelet Volume 10.4 fL (9.4-12.3); Monocytes Absolute Auto 0.5 X10*3/uL (0.1-1.2); Monocytes Percent Auto 6.4 % (2-11); Neutrophils Absolute Auto 3.8 x10*3/uL (2.0-8.3); Neutrophils Percent Auto 53.1 % (45-73); Platelet Count 347 X10*3/uL (160-400); Red Blood Count 4.71 X10*6/uL (4.20-5.50); Red Cell Distribution Width 13.1 % (11.0-16.0); SCAN SMEAR FLAG 1; White Blood Count 7.2 X10*3/uL (4.8-10.8)
[2024-11-12 10:51] LABS: SLIDE REVIEW VERIFIED
[2024-11-12 10:52] LABS: Alanine Aminotransferase 13 U/L (0-31); Albumin Level 4.8 g/dL (3.5-5.0); Alkaline Phosphatase 97 U/L (39-117); Anion Gap 13 (12-20); Aspartate Amino Transferase 22 U/L (5-31); Bilirubin Total 0.3 mg/dL (0.0-1.0); Blood Urea Nitrogen 15 mg/dL (9-16); Carbon Dioxide 27 mmol/L (22-29); Chloride 106 mmol/L (96-108); Cholesterol 192 mg/dL (<200); Estimated Glomerular Filt Rate > 60; Glucose Fasting 101 mg/dL (60-99); HDL Cholesterol 53 mg/dL (>40); LDL Cholesterol Calculated 112 mg/dL (<100); Potassium 3.6 mmol/L (3.3-5.1); Sodium 142 mmol/L (135-145); TSH reflex Free T4 3.19 uIU/mL (0.32-4.0); Total Protein 7.8 g/dL (6.5-8.0); Triglycerides 139 mg/dL (<150)
== END 2024-11-12 07:59 | disposition home or self-care (01) ==
LOC: HO.HMGCLDS 07:58
PROVIDERS: PCP Nurse Practitioner Family; Visit Provider Nurse Practitioner Family
DX: Z00.00 Encounter for general adult medical examination without abnormal findings (principal); M85.80 Other specified disorders of bone density and structure, unspecified site; Z13.6 Encounter for screening for cardiovascular disorders
CPT/HCPCS: 36415; 80053; 80061; 81003; 82306; 84443; 85025

== ENCOUNTER 2025-03-28 14:15 | Outpatient (REF) | payer MEDICARE, SELFPAY | END 2025-03-28 14:16 | disposition home or self-care (01) | LOC: HO.MAMMO 14:15 | PROVIDERS: Visit Provider Nurse Practitioner Family | DX: Z12.31 Encounter for screening mammogram for malignant neoplasm of breast (principal) | CPT/HCPCS: 77063; 77067 ==

== ENCOUNTER → 2025-03-28 14:45 | Outpatient (BNV) | payer MEDICARE, SELFPAY | PROVIDERS: Visit Provider Radiology Body Imaging | DX: Z12.31 Encounter for screening mammogram for malignant neoplasm of breast (principal) | CPT/HCPCS: 77063; 77067 ==

== ENCOUNTER 2025-04-09 09:04 | Outpatient (AMB) | payer MEDICARE, SELFPAY ==
--- NOTE | 2025-04-09 09:07 | A.OFFPC_ITS ---
Vital Signs 04/09/25 09:08 Height 5 ft Weight 116 lb BMI 22.7 BP 128/70 Blood Pressure Location Lt brachial Position Sitting Pulse 91 Pulse Source Pulse Oximeter Temp 98.8 F Temp Source Oral Pulse Oximetry (%) 94 Oxygen Delivery Method Room Air Intake Visit Reasons: Annual Antique Collector Required: No Accompanied by: Self / Same As Patient Allergies Codeine Sulfate Allergy (Unknown, Uncoded 05/14/24 13:05) Unknown Darvon Allergy (Unknown, Uncoded 05/14/24 13:05) Unknown Tobacco use date assessed: 04/09/25 Fall risk assessment: No Falls in past year Last assessed Fall Risk: 04/09/25 Dental Screening Dental Screen Date: 04/09/25 Did you have a dental visit in the last 12 months?: No Did you have a dental problem in the last 6 months where you did not have access to dental care?: No Was dental information given to patient?: Patient declined (Has denture) HPI Annual HPI Details History of Present Illness The patient is a 79-year-old female presenting for a physical exam. She has completed colon cancer screening with Cologuard and a recent mammogram, both of which were negative. She declines low-dose CT scans and is not due for a bone density test, having had one last year. The patient continues to smoke and uses a cane for assistance with mobility. Health Maintenance - Colon cancer screening with Cologuard - Recent mammogram, negative result - Refusal of low-dose CT scans - Smoking cessation discussion Social History - Smoking: The patient continues to smok e cigarettes. - Mobility: Uses a cane for assistance. Review of Systems - Cardiovascular: Denies chest pain. - Respiratory: Denies shortness of breat h. - Gastrointestinal: Denies abdominal abdifatah n, blood in stool, constipation, diarrhea. - Psychiatric: Denies suicidal ideation or homicidal ideation. Physical Exam General: Cooperative, healthy appearing, comfortable, no acute distress and well developed Orientation: Patient oriented x3 Limitations: Uses a cane Head: Normal to inspection Ears: Hearing grossly normal bilaterally Nose: Normal external nose present Face and sinus: Normal facial exam Eyes: Appearance normal, both eyes and all related structures Neck: Normal visual inspection and Yes full ROM Respiratory: Diminished lung sounds Cardiovascular: Regular rate and rhythm. Normal S1 and S2 GI: Normal to inspection. Soft to palpation and nontender Skin: No rashes or lesions noted Neuro: Patient oriented x3 Extremities: Normal to inspection Results - Screening Tests: Recent mammogram, neg ative result. Plan 1. Preventative Care: Colon Cancer Scree julius With Stool Test The patient has completed colon cancer screening with Cologuard as part of her routine preventative care. 2. Preventative Care: Recent Mammogram, Negative Result The patient recently underwent a mammogram, which was negative, indicating no current breast cancer concerns. 3. Smoking The patient continues to smoke cigarettes, and smoking cessation was discussed as part of her health maintenance plan. Discussion Notes During the visit, we discussed the importance of continuing preventative screenings such as colon cancer screening and mammograms. I advised the patient on the benefits of smoking cessation and the potential health improvements it could bring. We also reviewed her refusal of low-dose CT scans and her current use of a cane for mobility. Patient Instructions - Continue with regular preventative scr eenings as recommended. - Consider smoking cessation to improve overall health. - Follow up with any new symptoms or con cerns. [facility] Medical History Hx of bone density study Osteopenia Psoriasis Hypertension Surgical History S/P cholecystectomy H/O: hysterectomy Family History Father No problems noted. Mother Esophageal cancer Social History Housing: House Alcohol intake: current Alcohol intake frequency: a few times a week Patient Tobacco Use Status: Current someday Tobacco user Cigarettes Per Day: 4 Years Smoked: 17 years old Packs per year/per ci.00 e-Cigarette/Vaping Use: Never Used Second Hand Smoke Exposure: No Current occupational status: retired Cognitive needs: No Hearing needs: No Vision needs: No Questionnaire Thrive Questionnaire Date Thrive assessed: 02/12/24 IVAN-7 AMB Questionnaire IVAN-7 Date IVAN - 7 assessed: 04/09/25 Feeling nervous, anxious, or on edge: 0 = Not at all Not being able to stop or control worryin = Not at all Worrying too much about different things: 0 = Not at all Trouble relaxin = Not at all Being so restless that it is hard to sit still: 0 = Not at all Becoming easily annoyed or irritable: 0 = Not at all Feeling afraid as if something awful might happen: 0 = Not at all Total IVAN-7 score (0-4 normal; 5-9 mild; 10-14 moderate; 15-21 severe): 0 Source: Developed by Drs. Tremaine Martinez, Marcie Harry, Ahmet Garcia and colleagues, with an educational cata from [employer]. IVAN-7 Assessment Billing IVAN-7 Assessment Tool: IVAN-7 Assessment [id number] Physical exam (Primary Care) Vital Signs: Last Vital Signs Temp 98.8 F 04/09/25 09:08 Pulse 91 04/09/25 09:08 BP 128/70 04/09/25 09:08 Pulse Ox 94 04/09/25 09:08 Oxygen Delivery Method Room Air 04/09/25 09:08 BMI result Body Mass Index 22.7 Tobacco/Smoking Status: Tobacco use Status Tobacco use date assessed 04/09/25 04/09/25 09:14 Patient Tobacco Use Status Current someday Tobacco 04/09/25 09:14 e-Cigarette/Vaping Use Never Used 04/09/25 09:14 Thrive Assessment: Date of Thrive Assessment Date Thrive assessed 02/12/24 04/09/25 09:14 Coding Level of Care Code Est Pt Prev Care >65y(86058) Diagnoses Physical exam Z00. Vitamin D deficiency E55.9 Additional Codes IVAN-7 Assessment Billing - IVAN-7 Assessment Tool: IVAN-7 Assessment [id number] ([id number]) Assessment & Plan Assessment & Plan (1) Physical exam: Code(s): Z00.00 - Encounter for general adult medical examination without abnormal findings Category: Medical (2) Vitamin D deficiency: Code(s): E55.9 - Vitamin D deficiency, unspecified Category: Medical Plan . Orders: Orders UA CC w/rflx Micro + Cult Today Z00.00 - Encounter for general adult medical examination without abnormal findings Vitamin D 25-OH Total Today E55.9 - Vitamin D deficiency, unspecified Complete Blood Count Auto Diff Today Z00.00 - Encounter for general adult medical examination without abnormal findings Comprehensive [place]. Panel Fast Today Z00.00 - Encounter for general adult medical examination without abnormal findings TSH reflex Free T4 Today Z00.00 - Encounter for general adult medical examination without abnormal findings Lipid Panel Today Z00.00 - Encounter for general adult medical examination without abnormal findings
[2025-04-09 09:08] VITALS: BP 128/70; PULSE 91; TEMP 37.1; O2SAT 94; BMI 22.7
== END 2025-04-09 10:07 | disposition home or self-care (01) ==
LOC: HO.HMCC 09:05
PROVIDERS: Visit Provider Nurse Practitioner Family
DX: Z00.00 Encounter for general adult medical examination without abnormal findings (principal); E55.9 Vitamin D deficiency, unspecified

== ENCOUNTER → 2025-04-09 09:04 | Outpatient (BNVA) | payer MEDICARE, SELFPAY | PROVIDERS: Visit Provider Nurse Practitioner Family | DX: Z00.00 Encounter for general adult medical examination without abnormal findings (principal); E55.9 Vitamin D deficiency, unspecified; F17.210 Nicotine dependence, cigarettes, uncomplicated; Z99.89 Dependence on other enabling machines and devices | CPT/HCPCS: 96127; 99397 ==